=== PATIENT | female | born 1960 | race Caucasian/White ===

== ENCOUNTER → 2019-05-04 | Outpatient (CLI) | payer OTHER ==
[~2019-05-04] MED LIST: ATARAX,VISTARIL50 MG PO; CHLORHEXIDINE473 M1 PO; EFFEXOR XR150 M1 PO; ESTRACE 0.01%42.5 GM V; IBU800 M1 PO; LEVOTHYROXINE50 MCG PO; OMEPRAZOLE40 MG PO; SYNTHROID25 MCG PO; VITAMIN D-32000 UNI1 PO; ZYRTEC10 MG PO
== END | disposition home or self-care (01) ==
LOC: ORTHO 00:31
DX: S72.001D Fracture of unspecified part of neck of right femur, subsequent encounter for closed fracture with routine healing (principal); X58.XXXD Exposure to other specified factors, subsequent encounter

== ENCOUNTER → 2019-05-14 | Outpatient (CLI) | payer OTHER | END | disposition home or self-care (01) | LOC: RAD 13:30 | DX: M85.88 Other specified disorders of bone density and structure, other site (principal); M25.441 Effusion, right hand; E05.90 Thyrotoxicosis, unspecified without thyrotoxic crisis or storm; Z90.710 Acquired absence of both cervix and uterus ==

== ENCOUNTER → 2019-07-03 | Outpatient (CLI) | payer OTHER | END | disposition home or self-care (01) | LOC: ORTHO 01:10 | DX: M51.37 Other intervertebral disc degeneration, lumbosacral region (principal); Z96.641 Presence of right artificial hip joint ==

== ENCOUNTER → 2019-12-07 | Outpatient (CLI) | payer OTHER ==
[2019-12-08 08:08] LABS: IMMUNOGLOBULIN G, QNT 941 mg/dL (700-1600); IMMUNOGLOBULIN M, QNT 38 mg/dL (26-217)
[2019-12-12 08:06] LABS: METHYLMALONIC ACID 149 nmol/L (0-378)
== END | disposition home or self-care (01) ==
LOC: LAB 02:02 → MRI 13:00 → LAB 13:00
PROVIDERS: Psychiatry & Neurology Neurology
DX: M47.896 Other spondylosis, lumbar region (principal); M47.892 Other spondylosis, cervical region; M48.02 Spinal stenosis, cervical region; M48.061 Spinal stenosis, lumbar region without neurogenic claudication; M62.830 Muscle spasm of back; R20.0 Anesthesia of skin; R20.2 Paresthesia of skin; R29.6 Repeated falls; Z87.828 Personal history of other (healed) physical injury and trauma

== ENCOUNTER → 2020-07-31 | Outpatient (CLI) | payer MEDICARE | END | disposition home or self-care (01) | LOC: RAD 00:35 | PROVIDERS: ATTEND Orthopaedic Surgery | DX: M47.817 Spondylosis without myelopathy or radiculopathy, lumbosacral region (principal); Z96.641 Presence of right artificial hip joint ==